=== PATIENT | female | born 2000 | race African-American/Black ===

== ENCOUNTER 2023-12-06 06:18 | Emergency (ER) | payer OTHER, SELFPAY ==
[2023-12-06 06:24] VITALS: BP 117/78
--- NOTE | 2023-12-06 07:12 | ED.GENMED ---
History of Present Illness
<Maura Machuca REGIONAL CRA - Last Filed: 12/06/23 15:55>
General
Chief Complaint: Abdominal Pain
Source: patient
Exam Limitations: none
Time Seen by Provider: 12/06/23 07:05
Nursing documentation reviewed up to this point in time: agreed with
History of Present Illness
History of Present Illness:
23-year-old female with no significant past medical history presents with 2 days of right flank pain that is shooting in nature it is constant, waxes and wanes, currently 4/10. She took ibuprofen 600 mg 3 hours ago with some relief of the pain. She
denies fever/chills, denies N/V/D/C. She denies dysuria or frequency. She is currently menstruating.
Past History
<Maura Machuca REGION[facility] CRA - Last Filed: 12/06/23 15:55>
Past History
ED Past Medical History: None
ED Past Surgical History: None
Social History
Tobacco: Smoker
Alcohol: Occasional
Drug: Marijuana
Personal: Single
Living: with family
Employment: Employed
<Caridad Granado MD - Last Filed: 12/06/23 10:42>
Social History
Tobacco: Non-smoker
Review of Systems
<Maura Machuca REGIONAL CRA - Last Filed: 12/06/23 15:55>
Review of Systems
Allergies reviewed?: Yes
All Other Systems: ROS reviewed and negative except as documented in HPI and ROS
Constitutional: Denies fever or chills
Respiratory: Denies trouble breathing
Cardiac: Denies chest pain
ABD/GI: Reports abdominal pain (right side and flank); Denies nausea, vomiting, diarrhea, constipated or anorexia
: Reports flank pain; Denies dysuria, frequency, difficulty voiding or urgency
Musculoskeletal: Reports no symptoms
Skin: Reports no symptoms
Neurological: Reports no symptoms
Phy Exam
<Maura Machuca REGION[facility] CRA - Last Filed: 12/06/23 15:55>
Physical Exam
Physical Exam:
GENERAL: No acute distress. A&Ox3.
CONSTITUTIONAL: Afebrile.
EYES: Clear, conjunctivae normal
ENMT: moist mucus membranes, Pharynx nl
RESPIRATORY: Regular respirations, nonlabored, lungs clear.
CARDIOVASCULAR: Regular rate and rhythm, no murmurs, no rubs.
GI: Soft, right side abdomen, flank tender, normal BS
MUSCULOSKELETAL: Moves with ease. Well perfused.
SKIN: Warm, dry, normal
PSYCH: Normal mood and affect. Well kept, interactive and appropriate
NEUROLOGIC: Awake, alert and oriented. No focal neurological deficits
Scores
<Maura Machuca, REGIONAL CRA - Last Filed: 12/06/23 15:55>
PERC Rule Criteria
PERC Score: 0
PE can be excluded by PERC: Yes
<Caridad Granado MD - Last Filed: 12/06/23 10:42>
PERC Rule Criteria
Age <50 years: Yes
HR <100 bpm: Yes
Room air oxygen sat >94%: Yes
History of DVT or PE: No
Recent trauma or surgery: No
Hemoptysis: No
Exogenous estrogen: No
Clinical signs suggestive of DVT: No
: No
Considered low risk for PE: Yes
PERC Score: 0
PE can be excluded by PERC: Yes
Course
<Maura Machuca REGION[facility] CRA - Last Filed: 12/06/23 15:55>
Orders/Labs/Results
Orders:
Orders
12/06/23 07:11
IV Insert/Care/Rem.- Treatment PRN
0.9% Sodium Chloride 1000 ml [Nss] 1,000 ml IV BOLUS
12/06/23 07:12
CT Abd/pel Without Iv Or Oral Urgent
Comment:
Reason For Exam: R flank pain
Test Result ONCE
12/06/23 07:54
Complete Blood Count/With Diff Urgent
Comprehensive Metabolic Panel Urgent
HCG, Urine Qualitative Screen Urgent
Date Specimen was Collected: 12/06/23
Time Specimen was Collected: 07:53
Lipase Urgent
Urinalysis Reflex To Culture Urgent
Date Specimen was Collected: 12/06/23
Time Specimen was Collected: 07:53
Urine Microscopic Reflex Cult Urgent
Urine Culture Urgent
PATRICIA Source: U
Specimen Description:
Date Specimen was Collected: 12/06/23
Time Specimen was Collected: 07:53
12/06/23 08:13
Iohexol [Omnipaque] See Protocol PO NOW STA
Abnormal Lab Results
12/06/23
07:54
WBC 11.9 H 10^3/uL
(4.8-10.8)
RBC 3.16 L 10^6/uL
(4.20-5.40)
Hgb 10.2 L g/dL
(12.0-16.0)
Hct 30.2 L %
(37.0-47.0)
MCH 32.3 H pg
(27.0-31.0)
Plt Count 442 H 10^3/uL
(130-400)
Abs Immat Gran (auto) 0.1 H 10^3/uL
(0-0.05)
Absolute Neuts (auto) 9.1 H 10^3/uL
(1.4-6.5)
Absolute Monos (auto) 0.7 H 10^3/uL
(0.1-0.6)
Neutrophils % 76.4 H %
(42.2-75.2)
Lymphocytes % 16.0 L %
(20.5-51.1)
Ur Occult Blood Reflex 1+ A
(Negative)
Leukocyte Esterase Rfl 1+ A
(Negative)
Urine WBC (Reflex) 11-15 A /HPF
(0-5)
12/06/23 07:54
12/06/23 07:54
Vital Signs
Initial and Last Documented VS:
Initial Vital Signs
Pulse Resp BP Pulse Ox
90 18 117/78 100
12/06/23 06:24 12/06/23 06:24 12/06/23 06:24 12/06/23 06:24
Last Documented Vital Signs
Temp Pulse Resp BP Pulse Ox
97.8 F 64 18 141/79 99
12/06/23 11:50 12/06/23 10:06 12/06/23 06:24 12/06/23 10:06 12/06/23 10:06
<Caridad Granado MD - Last Filed: 12/06/23 10:42>
Orders/Labs/Results
Orders:
Orders
12/06/23 07:11
IV Insert/Care/Rem.- Treatment PRN
0.9% Sodium Chloride 1000 ml [Nss] 1,000 ml IV BOLUS
12/06/23 07:12
CT Abd/pel Without Iv Or Oral Urgent
Comment:
Reason For Exam: R flank pain
Test Result ONCE
12/06/23 07:54
Complete Blood Count/With Diff Urgent
Comprehensive Metabolic Panel Urgent
HCG, Urine Qualitative Screen Urgent
Date Specimen was Collected: 12/06/23
Time Specimen was Collected: 07:53
Lipase Urgent
Urinalysis Reflex To Culture Urgent
Date Specimen was Collected: 12/06/23
Time Specimen was Collected: 07:53
Urine Microscopic Reflex Cult Urgent
Urine Culture Urgent
PATRICIA Source: U
Specimen Description:
Date Specimen was Collected: 12/06/23
Time Specimen was Collected: 07:53
12/06/23 08:13
Iohexol [Omnipaque] See Protocol PO NOW STA
Abnormal Lab Results
12/06/23
07:54
WBC 11.9 H 10^3/uL
(4.8-10.8)
RBC 3.16 L 10^6/uL
(4.20-5.40)
Hgb 10.2 L g/dL
(12.0-16.0)
Hct 30.2 L %
(37.0-47.0)
MCH 32.3 H pg
(27.0-31.0)
Plt Count 442 H 10^3/uL
(130-400)
Abs Immat Gran (auto) 0.1 H 10^3/uL
(0-0.05)
Absolute Neuts (auto) 9.1 H 10^3/uL
(1.4-6.5)
Absolute Monos (auto) 0.7 H 10^3/uL
(0.1-0.6)
Neutrophils % 76.4 H %
(42.2-75.2)
Lymphocytes % 16.0 L %
(20.5-51.1)
Ur Occult Blood Reflex 1+ A
(Negative)
Leukocyte Esterase Rfl 1+ A
(Negative)
Urine WBC (Reflex) 11-15 A /HPF
(0-5)
12/06/23 07:54
12/06/23 07:54
Vital Signs
Initial and Last Documented VS:
Initial Vital Signs
Pulse Resp BP Pulse Ox
90 18 117/78 100
12/06/23 06:24 12/06/23 06:24 12/06/23 06:24 12/06/23 06:24
Last Documented Vital Signs
Temp Pulse Resp BP Pulse Ox
97.8 F 64 18 141/79 99
12/06/23 11:50 12/06/23 10:06 12/06/23 06:24 12/06/23 10:06 12/06/23 10:06
<Maura Machuca [facility]ION[facility] CRA - Last Filed: 12/06/23 15:55>
MDM/Problems Addressed
Differential Diagnosis Includes:
Kidney stone, GB disease, appendicitis
MDM/Problems Addressed:
23-year-old female with no significant past medical history presents with 2 days of right flank pain that is shooting in nature it is constant, waxes and wanes, currently 08/15. She took ibuprofen 600 mg 3 hours ago with some relief of the pain. She
denies fever/chills, denies N/V/D/C. She denies dysuria or frequency. She is currently menstruating.
Afebrile
CBC: WBC 11.9,
Rectal: heme neg mucus, no stool
CMP normal
UA: +1 occult blood +1 leukocyte Estrace negative nitrates 11-15 WBCs
HCG neg
10:45 AM:
CAT scan abdomen pelvis without IV or oral contrast radiology report read: IMPRESSION:
1. No renal, ureteral, or bladder calculi identified. No hydronephrosis. Urinary bladder shows diffuse mild wall thickening, cystitis is a consideration.
2. Normal caliber appendix without signs of inflammatory changes on noncontrast CT.
3. Mesenteric edematous changes and very small volume of free fluid within the pelvis, nonspecific. No bowel obstruction.
4. 3.2 cm left adnexal cyst, most likely ovarian cyst. If there is clinical concern, this could be further evaluated with follow-up ultrasound.
Plan: treat for UTI/cystitis, urine culture pending
Pt is in process of getting new PCP
Rx for Keflex sent to her pharmacy
<Maura Machuca [facility]ION[facility] CRA - Last Filed: 12/06/23 15:55>
*Critical Care Note
Total Time (30-74mins, 75-104mins- exclusive of procedures): Not Applicable
ED Attending Note
<Maura Machuca NP - Last Filed: 12/06/23 15:55>
-
Portions of this chart may have been created with voice recognition software.� Occasional wrong word or��sound alike� substitutions may have occurred due to the inherent limitations of voice recognition software.
<Caridad Granado MD - Last Filed: 12/06/23 10:42>
ED Attending Note
Patient seen and examined by attending physician: Yes
I performed the substantive portion of visit, reviewed & personally made and approve the management plan that is documented in note by myself or FIORDALIZA.: Yes
ED Attending Note:
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 Pain is worse with certain movements and she thought it was a 'pulled muscle', but symptoms
continue/are worsening. She denies associated dyspnea, fever, chills, nausea, vomiting, cough, sore throat, swelling, rash, leg swelling, recent immobilization, recent trauma, family or personal history of DVT, estrogen use. PERC negative. On
exam patient awake alert very well-appearing, vitals normal. Lungs clear to auscultation. Notes discomfort with movement and palpation at the site.
Discharge Plan
Departure
Patient Disposition: Home (Routine Discharge)
Date of Disposition: 12/06/23
Time of Disposition: 10:51
Patient with high blood pressure during this ER visit?: No
Condition: Good
Discharge Problem:
UTI (urinary tract infection)
Instructions: Urinary Tract Infection, Adult ED, Abdominal Pain
Prescriptions:
New
cephalexin 500 mg capsule
500 mg PO BID 7 Days Qty: 14 0RF
No Action
ibuprofen 400 mg Tablet
400 mg PO Q6H PRN (Reason: pain)
Referrals:
Your, Primary doctor [Other] - As needed
NONE,* [Family Provider] -
Activity Restrictions/Additional Instructions:
As we discussed, I am treating you for urinary tract infection.
I sent a prescription to your pharmacy for Keflex 500 mg twice a day for 7 days.
Drink plenty of fluids
Continue the ibuprofen 600 mg up to 3 times a day as needed for pain since it has helped in the past.
Seek medical care immediately for worsening pain, fever, vomiting or feeling sicker in any way
As we discussed, the urine culture will be back in 2-3 days, if you need a change in the antibiotic, we will contact you.
Interventions
Interventions:
*Risk Screen - Suicide Last Done: 12/06/23 07:43
*General Assessment Last Done: 12/06/23 07:43
*Neglect/Abuse Screening Last Done: 12/06/23 07:43
ED- Fall Risk Assessment Last Done: 12/06/23 07:43
*ED COVID-19 Vaccine History Last Done: 12/06/23 07:43
*Nursing Disposition Last Done: 12/06/23 11:50
WO-Uvuqph-Nqaszgeemt Assessment Last Done: 12/06/23 07:43
Discharge Date and Time
Discharge Date/Time: 12/06/23 10:57
Print Language: KYRGYZ
[2023-12-06 07:42] VITALS: BMI 26.2
[2023-12-06] MEDS: NSS 1000 IV (07:55)
[2023-12-06 08:08] LABS: % Basophils 0.2 % (0-2); % Immature Granulocytes 0.4 % (0-0.5); % Neutrophils 76.4 % (42.2-75.2); Absolute Eosinophils 0.1 10^3/uL (0-0.7); Absolute Immature Granulocytes 0.1 10^3/uL (0-0.05); Absolute Lymphocytes 1.9 10^3/uL (1.2-3.4); Absolute Monocytes 0.7 10^3/uL (0.1-0.6); Absolute Neutrophils 9.1 10^3/uL (1.4-6.5); Hematocrit 30.2 % (37.0-47.0); Hemoglobin 10.2 g/dL (12.0-16.0); Mean Corp Hgb Conc. 33.8 g/dL (33.0-37.0); Mean Corpuscular Hgb 32.3 pg (27.0-31.0); Mean Corpuscular Volume 95.6 fL (81.0-99.0); Mean Platelet Volume 9.7 fL (7.4-10.4); Nucleated Red Blood Cells % 0 %; Platelet Count 442 10^3/uL (130-400); Red Blood Cell Count 3.16 10^6/uL (4.20-5.40); Red Cell Dist. Width 11.9 % (11.5-14.5); White Blood Cell Count 11.9 10^3/uL (4.8-10.8)
[2023-12-06 08:16] LABS: ALT (SGPT) 18 U/L (0-35); AST (SGOT) 28 U/L (14-36); Albumin 3.7 g/dl (3.5-5.0); Alkaline Phosphatase 102 U/L (38-126); Blood Urea Nitrogen 11 mg/dl (7-17); Calcium 8.9 mg/dl (8.4-10.2); Carbon Dioxide 25 mmol/L (22-30); Chloride 106 mmol/L (98-107); Estimated Creatinine Clearance 106 ml/min; Glucose 99 mg/dl (70-99); Lipase 182 U/L (23-300); Potassium 3.6 mmol/L (3.5-5.1); Sodium 138 mmol/L (135-145); Total Bilirubin 0.4 mg/dl (0.2-1.3); Total Protein 6.8 g/dl (6.3-8.2); eGFR > 60.00
[2023-12-06 08:20] LABS: HCG, Urine Qualitative Screen Negative
[2023-12-06 08:26] LABS: Urine Albumin Trace (Neg - Trace); Urine Bilirubin Negative (Negative); Urine Character Clear (Clear); Urine Color Yellow; Urine Glucose Negative (Negative); Urine Ketone Negative (Negative); Urine Leukocyte 1+ (Negative); Urine Nitrite Negative (Negative); Urine Occult Blood 1+ (Negative); Urine Specific Gravity 1.025 (<1.030); Urine Urobilinogen Negative (Neg - 1+)
[2023-12-06 09:40] LABS: Urine Mucus Many
[2023-12-06 09:41] LABS: Urine Amorphous Seen
[2023-12-06 09:43] LABS: Urine Red Blood Cell 0-2 /HPF (0-2)
[2023-12-06 09:44] LABS: Urine Calcium Oxalate Crystals Seen
[2023-12-06 10:06] VITALS: BP 141/79
== END 2023-12-06 10:57 | disposition home or self-care (01) ==
LOC: EMR 06:18
PROVIDERS: Registered Nurse; EMERGENCY PHYSICIAN Emergency Medicine
DX: R10.9 Unspecified abdominal pain (principal); N39.0 Urinary tract infection, site not specified
CPT/HCPCS: 99284; 96360; 74176; 80053; 81003; 81015; 81025; 83690; 85025; 87086

== ENCOUNTER 2025-04-06 06:46 | Emergency (ER) | payer OTHER, SELFPAY ==
[2025-04-06 06:53] VITALS: BP 135/96
[2025-04-06 08:02] VITALS: BMI 22.0
[2025-04-06 08:12] LABS: Hematocrit 39.7 % (37.0-47.0); Hemoglobin 13.3 g/dL (12.0-16.0); Mean Corp Hgb Conc. 33.5 g/dL (33.0-37.0); Mean Corpuscular Volume 94.5 fL (81.0-99.0); Nucleated Red Blood Cells % 0 %; Platelet Count 415 10^3/uL (130-400); Red Cell Dist. Width 12.2 % (11.5-14.5)
--- NOTE | 2025-04-06 08:21 | ED.GENMED ---
History of Present Illness
General
Chief Complaint: Headache
Time Seen by Provider: 04/06/25 08:11
History of Present Illness
History of Present Illness:
24-year-old otherwise healthy female presents to the emergency department for evaluation of headache and vomiting that began last night. She describes a gradual onset of left temporal headache that began at approximately 9 PM and progressed
throughout the night. She then developed intractable vomiting but the headache has since resolved. States this was the worst headache of her life however does not have a history of migraines. Currently pain-free but does report mild nausea. No
blurry or double vision, no neck pain, no fever, chills, or sweats. Denies any abdominal pain at this time. No diarrhea.
Past History
Past History
ED Past Medical History: None
ED Past Surgical History: None
Social History
Tobacco: Smoker
Alcohol: Occasional
Drug: Marijuana
Personal: Single
Living: with family
Employment: Employed
Review of Systems
Review of Systems
Allergies reviewed?: Yes
All Other Systems: ROS reviewed and negative except as documented in HPI and ROS
Phy Exam
Physical Exam
Physical Exam:
GEN: Well appearing, NAD, WDWN
HEENT: Oral mucosa moist, no scleral icterus, no nasal congestion
Cardiac: Regular rate and rhythm, no murmur
Lung: No respiratory distress, no tachypnea
Abdomen: Soft, nontender
MSK: No gross deformity or injuries
Skin: Good color, no pallor or jaundice, no rashes
Neuro: AO x3; CN II-XII grossly intact. BUE strength 5/5 in all wilkins, sensation intact and symmetric. BLE strength 5/5 in all wilkins, sensation intact and symmetric
Psych: Calm, cooperative
Course
Orders/Labs/Results
Orders:
Orders
04/06/25 07:53
IV Insert/Care/Rem.- Treatment PRN
Test Result ONCE
04/06/25 08:00
Complete Blood Count/With Diff Urgent
Comprehensive Metabolic Panel Urgent
HCG, Serum Qualitative Screen Urgent
Comment: Notify provider if positive test present
Lipase Urgent
04/06/25 08:21
Ondansetron Injectable [Zofran] 4 mg IV NOW STA
04/06/25 09:18
0.9% Sodium Chloride 1000 ml [Nss] 1,000 ml IV BOLUS
Abnormal Lab Results
04/06/25
08:00
MCH 31.7 H pg
(27.0-31.0)
Plt Count 415 H 10^3/uL
(130-400)
Absolute Neuts (auto) 6.8 H 10^3/uL
(1.4-6.5)
Absolute Lymphs (auto) 1.0 L 10^3/uL
(1.2-3.4)
Neutrophils % 83.7 H %
(42.2-75.2)
Lymphocytes % 12.0 L %
(20.5-51.1)
Glucose 114 H mg/dl
(70-99)
Total Protein 9.2 H g/dl
(6.3-8.2)
Albumin 5.2 H g/dl
(3.5-5.0)
04/06/25 08:00
04/06/25 08:00
Vital Signs
Initial and Last Documented VS:
Initial Vital Signs
Temp Pulse Resp BP Pulse Ox
98.7 F 96 18 135/96 98
04/06/25 06:53 04/06/25 06:53 04/06/25 06:53 04/06/25 06:53 04/06/25 06:53
Last Documented Vital Signs
Temp Pulse Resp BP Pulse Ox
98.1 F 96 18 135/96 98
04/06/25 08:03 04/06/25 06:53 04/06/25 06:53 04/06/25 06:53 04/06/25 08:23
MDM/Problems Addressed
MDM/Problems Addressed:
At this time the patient's headache is resolved and she has no focal neurodeficits. Low clinical suspicion for ICH/SAH/intracranial neoplasm given resolution of headache. Discussed potential low yield of CT scan with patient and mother who are in
agreement with withholding imaging at this time. Patient's labs are reassuring. She has no meningeal signs. Likely self-limited viral syndrome, vomiting has since improved after antiemetics. Encouraged her to return to the ER with any recurrent
headache, discussed supportive care for nausea and vomiting
*Pulse Oximetry
SaO2: 98
Oxygen Mode of Delivery: Room air
Patient hypoxic: no
*Critical Care Note
Total Time (30-74mins, 75-104mins- exclusive of procedures): Not Applicable
ED Attending Note
-
Portions of this chart may have been created with voice recognition software.� Occasional wrong word or��sound alike� substitutions may have occurred due to the inherent limitations of voice recognition software.
Discharge Plan
Departure
Patient Disposition: Home (Routine Discharge)
Date of Disposition: 04/06/25
Time of Disposition: 09:12
Patient with high blood pressure during this ER visit?: No
Discharge Problem:
Headache, Vomiting
Instructions: Nausea and Vomiting, Adult (DC)
Prescriptions:
New
ondansetron 4 mg tablet,disintegrating
4 mg PO TIDPRN PRN (Reason: nausea/vomiting) Qty: 10 0RF
No Action
ibuprofen 400 mg Tablet
400 mg PO Q6H PRN (Reason: pain)
cephalexin 500 mg capsule
500 mg PO BID 7 Days Qty: 14 0RF
Referrals:
Ashley Knight MD [Family Provider, Family Practice]
Activity Restrictions/Additional Instructions:
If your headache returns, please return to the ER immediately for re-evaluation
Use the anti nausea medication as needed to control nausea/vomiting; if you require this for more than 48 hours, please consider follow up with your primary doctor or in the ER
Try a bland diet today to minimize stomach/intestinal distress
Interventions
Interventions:
*Risk Screen - Suicide Last Done: 04/06/25 06:53
*General Assessment Last Done: 04/06/25 06:53
*Neglect/Abuse Screening Last Done: 04/06/25 06:53
*ED- Fall Risk Assessment Last Done: 04/06/25 09:20
*ED COVID-19 Vaccine History Last Done: 04/06/25 09:20
*ED Influenza Vaccine History Last Done: 04/06/25 09:20
*Nursing Disposition Last Done: 04/06/25 09:20
DU-Wxfrtz-Qkwfjwpzwh Assessment Last Done: 04/06/25 09:19
ED- Neurological Assessment Last Done: 04/06/25 09:19
Discharge Date and Time
Discharge Date/Time: 04/06/25 09:21
Print Language: [id number]
[2025-04-06 08:22] LABS: HCG, Serum Qualitative Screen Negative
[2025-04-06] MEDS: ZOFRAN 4 MG IV (08:28)
[2025-04-06 08:29] LABS: ALT (SGPT) 23 U/L (0-35); AST (SGOT) 26 U/L (14-36); Albumin 5.2 g/dl (3.5-5.0); Alkaline Phosphatase 104 U/L (38-126); Blood Urea Nitrogen 11 mg/dl (7-17); Calcium 10.0 mg/dl (8.4-10.2); Carbon Dioxide 27 mmol/L (22-30); Chloride 105 mmol/L (98-107); Estimated Creatinine Clearance 125 ml/min; Glucose 114 mg/dl (70-99); Lipase 120 U/L (23-300); Potassium 4.1 mmol/L (3.5-5.1); Sodium 141 mmol/L (135-145); Total Protein 9.2 g/dl (6.3-8.2); eGFR > 60.00
[2025-04-06] MEDS: NSS 1000 IV (09:18)
== END 2025-04-06 09:21 | disposition home or self-care (01) ==
LOC: EMR 06:46
PROVIDERS: EMERGENCY PHYSICIAN Emergency Medicine; FAMILY PHYSICIAN Family Medicine
DX: R51.9 Headache, unspecified (principal); R11.10 Vomiting, unspecified; F17.200 Nicotine dependence, unspecified, uncomplicated
CPT/HCPCS: 99284; 96374; 96361; 80053; 83690; 84703; 85025